=== PATIENT | male | born 1955 | race Caucasian/White ===

== ENCOUNTER 2023-10-02 02:19 | Emergency (ER) | payer OTHER, SELFPAY ==
[2023-10-02 02:21] VITALS: BP 202/104
[2023-10-02 02:35] VITALS: BP 208/108
--- NOTE | 2023-10-02 02:58 | ED.GENMED ---
History of Present Illness
<EDDIE Chavira - Last Filed: 10/02/23 04:25>
General
Chief Complaint: Blood Pressure Problem
Source: patient
Exam Limitations: none
Time Seen by Provider: 10/02/23 02:31
Nursing documentation reviewed up to this point in time: agreed with
Travel History
Have you had any contact with someone who has COVID-19?: No
Do you have any symptoms of coronavirus? Fever > 100 degrees, chills, cough, shortness of breath, sore throat, loss of taste or smell, muscle aches, or headache?: No
History of Present Illness
History of Present Illness:
This is a 68 year old male, with a PMH of CABG, HTN, and HLD, who presents to the ER c/o left sided neck pain for 2 days. Pt states he woke up with the pain 2 days ago and noticed his head was not on a pillow. He states the pain is constant and
worsened with movement. He cannot move his neck completely to the left or right and it feels stiff. Pt also states he has had a headache for the past 2 days that feels like 'blood rushing' to his head. He denies any CP, SOB, changes in vision, pain
with breathing, n/v, abdominal pain, leg pain or swelling, or any fever or chills.
Pt has not been taking any medications and does not remember when he stopped his blood pressure medication. He had a CABG 2 years ago. Denies alcohol, tobacco or drug use. He sees his interior designer regularly.
Past History
<EDDIE Chavira - Last Filed: 10/02/23 04:25>
Past History
ED Past Medical History: CAD, HTN and Hypercholesterolemia; Negative IDDM or NIDDM
ED Past Surgical History: Appendectomy, Cardiac (CABG 2020) and Orthopedic
Patient has exhibited threatening behavior?: No
Social History
Tobacco: Former smoker
Alcohol: None
Drug: None
Personal: Single
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
Family History
Family History: CAD
Review of Systems
<EDDIE Chavira - Last Filed: 10/02/23 04:25>
Review of Systems
Allergies reviewed?: Yes
All Other Systems: ROS reviewed and negative except as documented in HPI and ROS
Constitutional: Reports no symptoms; Denies fever or chills
EENT: Reports no symptoms (no changes in vision)
Respiratory: Reports no symptoms; Denies trouble breathing
Cardiac: Reports no symptoms; Denies chest pain
ABD/GI: Reports no symptoms; Denies abdominal pain, nausea or vomiting
: Reports no symptoms
Musculoskeletal: Reports muscle stiffness and neck pain (left sided neck pain and stiffness)
Skin: Reports no symptoms
Neurological: Reports headache
Psychiatric: Reports no symptoms
Phy Exam
<EDDIE Chavira - Last Filed: 10/02/23 04:25>
General Physical Exam
General Presentation: mild distress
General age: appears stated age
General Skin: warm and dry
General Habitus: normal
General Mental: alert
General Hydration: appears well hydrated
ENT Exam
ENT Exam: EOMI, pharynx normal, neck supple and normocephalic
Cardiovascular Exam
Cardiovascular Exam: regular rate/rhythm, no edema, no murmur, normal peripheral pulses and sternotomy scar
Pulmonary Exam
Pulmonary Exam: lungs clear, no respiratory distress, no rales, chest non tender, no crackles, no rhonchi and no wheezing
Oxygen Status: room air
Cough: no cough
Gastrointestinal Exam
Gastrointestinal Exam: normal bowel sounds, non tender, soft and non distended
Neurological Exam
Neurological Exam: alert and oriented x3
Musculoskeletal Exam
Musculoskeletal Exam: neck pain (limited ROM of neck, tenderness to palpation along left side and posteriorly along trapezius) and no edema
Skin Exam
Skin Exam: normal color, warm/dry and no rash
Psychiatric Exam
Psychiatric Exam: normal mood/affect
Course
<EDDIE Chavira - Last Filed: 10/02/23 04:25>
Orders/Labs/Results
Orders:
Orders
10/02/23 02:24
Electrocardiogram (*1) Urgent
Reason for Study: Hypertension, Benign
EKG- Treatment ONCE
10/02/23 03:22
Diazepam [Valium] 5 mg PO NOW STA
Vital Signs
Initial and Last Documented VS:
Initial Vital Signs
Temp Pulse Resp BP Pulse Ox
98.7 F 63 18 202/104 98
10/02/23 02:21 10/02/23 02:21 10/02/23 02:21 10/02/23 02:21 10/02/23 02:21
Last Documented Vital Signs
Temp Pulse Resp BP Pulse Ox
98.7 F 58 23 186/82 98
10/02/23 02:21 10/02/23 03:00 10/02/23 03:00 10/02/23 03:00 10/02/23 03:00
<Collin Park DO - Last Filed: 10/02/23 04:41>
Orders/Labs/Results
Orders:
Orders
10/02/23 02:24
Electrocardiogram (*1) Urgent
Reason for Study: Hypertension, Benign
EKG- Treatment ONCE
10/02/23 03:22
Diazepam [Valium] 5 mg PO NOW STA
Vital Signs
Initial and Last Documented VS:
Initial Vital Signs
Temp Pulse Resp BP Pulse Ox
98.7 F 63 18 202/104 98
10/02/23 02:21 10/02/23 02:21 10/02/23 02:21 10/02/23 02:21 10/02/23 02:21
Last Documented Vital Signs
Temp Pulse Resp BP Pulse Ox
98.7 F 58 23 186/82 98
10/02/23 02:21 10/02/23 03:00 10/02/23 03:00 10/02/23 03:00 10/02/23 03:00
<Collin Park DO - Last Filed: 10/02/23 04:41>
MDM/Problems Addressed
MDM/Problems Addressed:
Trapezius spasm, hypertension
<EDDIE Chavira - Last Filed: 10/02/23 04:25>
*Critical Care Note
Total Time (30-74mins, 75-104mins- exclusive of procedures): Not Applicable
<Collin Park DO - Last Filed: 10/02/23 04:41>
*Pulse Oximetry
Patient hypoxic: no
*EKG
Interpreted by ED Provider?: Yes
Interpretation: abnormal
Comparison EKG: no changes
Rate: normal
Rhythm: sinus
[place]: normal axis
Ischemia: non-specific ST changes
*Critical Care Note
Total Time (30-74mins, 75-104mins- exclusive of procedures): Not Applicable
Data Reviewed
Source: patient
Further Testing Considered But Not Given:
Considered imaging but no trauma
ED Attending Note
<EDDIE Chavira - Last Filed: 10/02/23 04:25>
-
Portions of this chart may have been created with voice recognition software.� Occasional wrong word or��sound alike� substitutions may have occurred due to the inherent limitations of voice recognition software.
<Collin Park DO - Last Filed: 10/02/23 04:41>
ED Attending Note
Patient seen and examined by attending physician: Yes
I performed the substantive portion of visit, reviewed & personally made and approve the management plan that is documented in note by myself or JAKUB.: Yes
ED Attending Note:
Seen and examined. Agree with above. 68-year-old male states he woke up with neck pain. He could not turn his head because he had discomfort in the left trapezius and neck region. Patient states he has been seeing his interior designer and states he
was told he was doing well. He did start having some neck discomfort the other day but today got worse. He states he wanted to make sure his 'head was not going to fall off'. He jokes with that but states that he just became concerned when he
rotate his neck without pain. No chest pain. No back pain. No radiation of the pain.
CONSTITUTIONAL Patient alert and oriented to person, place and time. Well-appearing. Vital signs reviewed.
HEAD atraumatic, normocephalic.
EYES eyelids normal to inspection, Pupils equally round and reactive to light, Extraocular muscles intact, Conjunctiva normal, Sclera normal.
NECK able to side bend and rotate but rotation is somewhat limited when rotating to the right and left, Trachea midline, no jugular venous distention. Moderate left trapezius and left paraspinal tenderness. No midline tenderness.
RESPIRATORY CHEST No respiratory distress noted, Chest expansion equal
BACK normal inspection, no obvious deformities
UPPER EXTREMITY range of motion normal, Motor strength normal, no cyanosis, no edema.
LOWER EXTREMITY range of motion normal, Motor strength normal, no cyanosis, no edema.
NEURO Speech normal, No focal motor deficits, Blanca coma scale 15, Memory normal, Cranial Nerves intact to screening exam.
SKIN skin warm, dry, and normal in color.
PSYCHIATRIC patient oriented to person place and time, Normal affect.
Assessment and plan: Suspect muscular etiology. Clearly reproducible. No clinical concern for cardiac disease. No clinical concern for dissection. Patient states he has been seeing his interior designer. However, he is not currently on any
medications. I asked him to follow-up again. Cover with Flexeril. Okay for discharge. Also recommended warm compress
Discharge Plan
Departure
Patient Disposition: Home (Routine Discharge)
Date of Disposition: 10/02/23
Time of Disposition: 03:31
Patient with high blood pressure during this ER visit?: Yes
Condition: Good
Discharge Problem:
Muscle spasm
Instructions: Neck pain
Prescriptions:
New
cyclobenzaprine 10 mg tablet
10 mg PO TID PRN (Reason: muscle spasm) Qty: 10 0RF
No Action
aspirin 81 MG tablet,delayed release (DR/EC)
81 mg PO DAILY
acetaminophen 325 MG tablet
650 mg PO Q4HPRN PRN (Reason: mild pain) Qty: 1 0RF
ibuprofen 200 MG tablet
400 - 600 mg PO Q6HPRN PRN (Reason: moderate pain) Qty: 1 0RF
oxycodone 5 MG tablet
5 mg PO Q4HPRN PRN (Reason: breakthrough/severe pain) Qty: 15 0RF
amoxicillin-pot clavulanate 875-125 mg tablet
1 tab PO BID Qty: 14 0RF
Activity Restrictions/Additional Instructions:
Take tylenol as needed for pain and avoid heavy lifting or strenuous exercise until pain resolves. Follow up with primary care and cardiology for blood pressure management. If you develop any chest pain, shortness of breath, fever, chills, nausea,
vomiting, changes in vision, or any severe or worsening pain, return to the emergency room immediately.
Your blood pressure was elevated while in the Emergency Department, please have your doctor re-evaluate it in the next 48 hours as untreated hypertension may lead to serious complications.
[2023-10-02 03:00] VITALS: BP 186/82
[2023-10-02] MEDS: VALIUM 5 MG PO (03:56)
== END 2023-10-02 05:10 | disposition home or self-care (01) ==
LOC: EMR 02:19
PROVIDERS: EMERGENCY PHYSICIAN Emergency Medicine; FAMILY PHYSICIAN Family Medicine
DX: M62.838 Other muscle spasm (principal); I10 Essential (primary) hypertension; E78.00 Pure hypercholesterolemia, unspecified; I25.10 Atherosclerotic heart disease of native coronary artery without angina pectoris; Z82.49 Family history of ischemic heart disease and other diseases of the circulatory system; Z87.891 Personal history of nicotine dependence; Z90.49 Acquired absence of other specified parts of digestive tract; Z95.1 Presence of aortocoronary bypass graft
CPT/HCPCS: 99283; 93005

== ENCOUNTER 2024-04-18 18:45 | Emergency (ER) | payer OTHER, SELFPAY ==
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
[2024-04-18 18:55] VITALS: BP 158/76
[2024-04-18 20:17] VITALS: BP 171/77
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
== END 2024-04-18 20:39 | disposition home or self-care (01) ==
LOC: EMR 18:45
PROVIDERS: EMERGENCY PHYSICIAN Emergency Medicine; FAMILY PHYSICIAN Family Medicine
DX: S82.892A Other fracture of left lower leg, initial encounter for closed fracture (principal); V49.9XXA Car occupant (driver) (passenger) injured in unspecified traffic accident, initial encounter; I25.10 Atherosclerotic heart disease of native coronary artery without angina pectoris; I10 Essential (primary) hypertension; E78.00 Pure hypercholesterolemia, unspecified; Z87.891 Personal history of nicotine dependence; Z82.49 Family history of ischemic heart disease and other diseases of the circulatory system; Z90.49 Acquired absence of other specified parts of digestive tract; Z95.1 Presence of aortocoronary bypass graft
CPT/HCPCS: 99283; 73610

== ENCOUNTER → 2024-11-29 14:30 | Outpatient (REF) | payer OTHER, SELFPAY | LOC: RAD 14:30 | PROVIDERS: ATTENDING PHYSICIAN Orthopaedic Surgery; FAMILY PHYSICIAN Family Medicine | DX: M12.572 Traumatic arthropathy, left ankle and foot (principal) | CPT/HCPCS: 73700 ==

== ENCOUNTER 2024-12-15 17:55 | Emergency (ER) | payer OTHER, SELFPAY ==
[2024-12-15 17:55] VITALS: BP 166/76
--- NOTE | 2024-12-15 19:56 | ED.GENMED ---
History of Present Illness
General
Chief Complaint: Musculo-Skeletal Complaint
Source: patient
Exam Limitations: none
Time Seen by Provider: 12/15/24 18:23
History of Present Illness
History of Present Illness:
Patient complaining of ongoing issue with his left ankle. This is a chronic issue. He has been followed by orthopedics at [facility]. Is unsure where to turn. He has no acute complaints. More frustrated with lack of follow-up and direction
Past History
Past History
ED Past Medical History: CAD, HTN and Hypercholesterolemia; Negative IDDM or NIDDM
ED Past Surgical History: Appendectomy, Cardiac (CABG 2020) and Orthopedic
Patient has exhibited threatening behavior?: No
Social History
Tobacco: Former smoker
Alcohol: None
Drug: None
Personal: Single
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
Family History
Family History: CAD
Review of Systems
Review of Systems
Constitutional: Denies fever or chills
Phy Exam
Physical Exam
Physical Exam:
General: Nontoxic appearing in no distress
Skin: Warm and dry, no rash
Neuro: Alert, nontoxic, grossly nonfocal
Psychiatric: Good eye contact and appropriate
Musculoskeletal: Chronic deformity to the left ankle. No erythema or warmth. Calf nontender. No cord. Knee normal. Good distal pulses and color. Foot nontender
Course
Vital Signs
Initial and Last Documented VS:
Initial Vital Signs
Temp Pulse Resp BP Pulse Ox
97.8 F 66 16 166/76 98
12/15/24 17:55 12/15/24 17:55 12/15/24 17:55 12/15/24 17:55 12/15/24 17:55
Last Documented Vital Signs
Temp Pulse Resp BP Pulse Ox
97.8 F 66 16 166/76 98
12/15/24 17:55 12/15/24 17:55 12/15/24 17:55 12/15/24 17:55 12/15/24 17:55
MDM/Problems Addressed
Differential Diagnosis Includes:
No findings to support an acute infectious ankle issues or any acute issue. This appears to be more of a direction issue. Reviewed his previous CT scan ordered Dr. Lopez. He is clearly the specialist that the patient needs to follow-up with
*Pulse Oximetry
Patient hypoxic: no
*Critical Care Note
Total Time (30-74mins, 75-104mins- exclusive of procedures): Not Applicable
Data Reviewed
Review of Other/Old Records Reveals: Radiology Studies
ED Attending Note
-
Portions of this chart may have been created with voice recognition software.� Occasional wrong word or��sound alike� substitutions may have occurred due to the inherent limitations of voice recognition software.
Discharge Plan
Departure
Patient Disposition: Home (Routine Discharge)
Date of Disposition: 12/15/24
Time of Disposition: 19:57
Patient with high blood pressure during this ER visit?: Yes
Discharge Problem:
Ongoing ankle pain, Severe arthropathy left ankle
Instructions: BLOOD PRESSURE
Prescriptions:
No Action
Unobtainable
0
Referrals:
UNKNOWN - PT DOES,NOT KNOW [Family Provider] -
Activity Restrictions/Additional Instructions:
Tuesday morning call Dr. Vinny Lopez from [facility] for close follow-up
Return sooner with increased pain swelling redness fever or any other concerning symptoms
Interventions
Interventions:
*General Assessment Last Done: 12/15/24 17:55
*ED- Fall Risk Assessment Last Done: 12/15/24 17:55
*ED COVID-19 Vaccine History Last Done: 12/15/24 17:55
Discharge Date and Time
Print Language: NEPALESE
[2024-12-15 20:16] VITALS: BP 155/91
== END 2024-12-15 20:31 | disposition home or self-care (01) ==
LOC: EMR 17:55
PROVIDERS: EMERGENCY PHYSICIAN Emergency Medicine
DX: M25.572 Pain in left ankle and joints of left foot (principal); M13.872 Other specified arthritis, left ankle and foot; I25.10 Atherosclerotic heart disease of native coronary artery without angina pectoris; I10 Essential (primary) hypertension; E78.00 Pure hypercholesterolemia, unspecified; Z82.49 Family history of ischemic heart disease and other diseases of the circulatory system; Z87.891 Personal history of nicotine dependence; Z90.49 Acquired absence of other specified parts of digestive tract; Z95.1 Presence of aortocoronary bypass graft
CPT/HCPCS: 99282